=== PATIENT | female | born 1950 | race Caucasian/White ===

== ENCOUNTER → 2017-02-28 | Outpatient (CLI) | payer MEDICAID ==
[~2017-02-28] MED LIST: DIPH25TA31 PO; IBUP-2055 PO; OXYC-197 PO; SPIR25TA PO; THYR30TA2 PO
[2017-02-28 08:57] LABS: MEAN PLATELET VOLUME 9.8 FL (7.4-10.4); RED BLOOD COUNT 4.8 10^6/uL (4.35-5.85); RED CELL DISTRIBUTION WIDTH 13.8 % (10.0-14.5); WHITE BLOOD COUNT 5.3 10^3/uL (4.3-11.0)
[2017-02-28 09:18] LABS: ALANINE AMINOTRANSFERASE 12 U/L (0-55); ANION GAP 11 MMOL/L (5-14); ASPARTATE AMINO TRANSFERASE 14 U/L (5-34); BILIRUBIN,TOTAL 0.6 MG/DL (0.1-1.0); BLOOD UREA NITROGEN 10 MG/DL (7-18); BUN/CREATININE RATIO 13; CALCIUM 8.9 MG/DL (8.5-10.1); CARBON DIOXIDE 25 MMOL/L (21-32); CHLORIDE 102 MMOL/L (98-107); CHOLESTEROL 189 MG/DL (< 200); CREATININE SERUM 0.75 MG/DL (0.60-1.30); DIRECT LDL 118 MG/DL (1-129); GFR ESTIMATED > 60; GLUCOSE 99 MG/DL (70-105); POTASSIUM 3.9 MMOL/L (3.6-5.0); SODIUM 138 MMOL/L (135-145); TOTAL PROTEIN 6.7 GM/DL (6.4-8.2); TRIGLYCERIDES 92 MG/DL (<150); VLDL CHOLESTEROL 18 MG/DL (5-40)
[2017-02-28 09:37] LABS: THYROID STIMULATING HORMONE 2.28 UIU/ML (0.35-4.94)
[2017-03-03 07:46] LABS: MICROALBUMIN/CREATININE RATIO 9.3 mg/gCR (0.0-30.0)
[2017-03-04 13:25] LABS: ANTI THYROID MICROSOMAL ABY 3.24 Units (0.00-100.00)
== END ==
LOC: LAB 08:35
PROVIDERS: ATTEND Nurse Practitioner Family
DX: R53.83 Other fatigue (principal); E03.9 Hypothyroidism, unspecified; E78.5 Hyperlipidemia, unspecified; I10 Essential (primary) hypertension
CPT/HCPCS: 36415; 80053; 80061; 82043; 84436; 84443; 84480; 85027; 86376

== ENCOUNTER → 2018-02-20 | Outpatient (CLI) | payer MEDICAID ==
--- NOTE | 2018-02-20 09:34 | Diagnostic Imaging Report ---
PROCEDURE: CT abdomen and pelvis without contrast. TECHNIQUE: Multiple contiguous axial images were obtained through the abdomen and pelvis without the use of intravenous contrast. INDICATION: Left lower quadrant pain. Comparison is made with prior CT from 02/01/2016. The lung bases are clear. No discrete liver mass is identified. The gallbladder appears to be surgically absent. The pancreas and spleen are unremarkable. No adrenal mass is identified. Kidneys are without renal calculi or hydronephrosis. Aorta is partially calcified but non-aneurysmal. There has been surgical repair of previously noted midline ventral hernia containing bowel loops. No recurrent hernia of bowel loops is seen although there is minimal possibly herniated fat at the umbilicus. The small and large bowel loops are normal caliber. No obstruction is seen. There is sigmoid diverticulosis without evidence of acute diverticulitis. Bladder and uterus are unremarkable. IMPRESSION: 1. Uncomplicated diverticulosis. 2. Fat-containing umbilical hernia. Study is otherwise unremarkable. No acute feature is detected. Dictated by: Dictated on workstation # [id number]
== END ==
LOC: RAD 08:50
PROVIDERS: ATTEND Urology
DX: K57.30 Diverticulosis of large intestine without perforation or abscess without bleeding (principal); K42.9 Umbilical hernia without obstruction or gangrene
CPT/HCPCS: 74176

== ENCOUNTER → 2018-08-28 | Outpatient (CLI) | payer MEDICAID ==
[~2018-08-28] MED LIST changes: -OXYC-197 PO; +OXYC1TAB87 PO
[2018-08-28 10:12] LABS: BASOPHILS % (AUTO) 1 % (0-10); EOSINOPHILS # (AUTO) 0.4 10^3/uL (0.0-0.3); EOSINOPHILS % (AUTO) 7 % (0-10); HEMATOCRIT 41 % (35-52); HEMOGLOBIN 13.7 G/DL (11.5-16.0); LYMPHOCYTES # (AUTO) 1.3 X 10^3 (1.0-4.0); LYMPHOCYTES % (AUTO) 24 % (12-44); MEAN CORPUSCULAR HEMOGLOBIN 29 PG (25-34); MEAN CORPUSCULAR HGB CONC 34 G/DL (32-36); MEAN CORPUSCULAR VOLUME 88 FL (80-99); MEAN PLATELET VOLUME 10.6 FL (7.4-10.4); MONOCYTES # (AUTO) 0.4 X 10^3 (0.0-1.0); MONOCYTES % (AUTO) 7 % (0-12); NEUTROPHILS # (AUTO) 3.3 X 10^3 (1.8-7.8); NEUTROPHILS % (AUTO) 62 % (42-75); PLATELET COUNT 259 10^3/uL (130-400); RED BLOOD COUNT 4.66 10^6/uL (4.35-5.85); RED CELL DISTRIBUTION WIDTH 13.6 % (10.0-14.5); WHITE BLOOD COUNT 5.4 10^3/uL (4.3-11.0)
[2018-08-28 10:31] LABS: ALANINE AMINOTRANSFERASE 12 U/L (0-55); ALBUMIN 4.2 GM/DL (3.2-4.5); ALKALINE PHOSPHATASE 76 U/L (40-136); BILIRUBIN,TOTAL 0.6 MG/DL (0.1-1.0); BUN/CREATININE RATIO 16; CALCIUM 9.8 MG/DL (8.5-10.1); CARBON DIOXIDE 28 MMOL/L (21-32); CHLORIDE 99 MMOL/L (98-107); CHOLESTEROL 191 MG/DL (< 200); CREATININE SERUM 0.83 MG/DL (0.60-1.30); GFR ESTIMATED > 60; GLUCOSE 89 MG/DL (70-105); HDL CHOLESTEROL 64 MG/DL (40-60); SODIUM 138 MMOL/L (135-145); TRIGLYCERIDES 91 MG/DL (<150); VLDL CHOLESTEROL 18 MG/DL (5-40)
== END ==
LOC: LAB 09:59
PROVIDERS: ATTEND Nurse Practitioner Family
DX: R53.83 Other fatigue (principal); E78.2 Mixed hyperlipidemia; R60.0 Localized edema; M79.2 Neuralgia and neuritis, unspecified
CPT/HCPCS: 36415; 80053; 80061; 84443; 85025

== ENCOUNTER → 2018-09-02 | Outpatient (CLI) | payer MEDICAID | LOC: WOUNDCARE 13:16 | PROVIDERS: ATTEND Surgery | DX: I70.232 Atherosclerosis of native arteries of right leg with ulceration of calf (principal); L97.211 Non-pressure chronic ulcer of right calf limited to breakdown of skin; L97.221 Non-pressure chronic ulcer of left calf limited to breakdown of skin; I89.0 Lymphedema, not elsewhere classified; E66.01 Morbid (severe) obesity due to excess calories; Z68.41 Body mass index [BMI] 40.0-44.9, adult | CPT/HCPCS: 99214 ==

== ENCOUNTER → 2018-09-11 | Outpatient (CLI) | payer MEDICAID | LOC: WOUNDCARE 10:26 | PROVIDERS: ATTEND Surgery | DX: L97.211 Non-pressure chronic ulcer of right calf limited to breakdown of skin (principal); I89.0 Lymphedema, not elsewhere classified; E66.01 Morbid (severe) obesity due to excess calories | CPT/HCPCS: 29581 ==

== ENCOUNTER → 2018-09-14 | Outpatient (CLI) | payer MEDICAID | LOC: WOUNDCARE 08:22 | PROVIDERS: ATTEND Surgery | DX: I70.232 Atherosclerosis of native arteries of right leg with ulceration of calf (principal); L97.211 Non-pressure chronic ulcer of right calf limited to breakdown of skin; I89.0 Lymphedema, not elsewhere classified; E66.01 Morbid (severe) obesity due to excess calories; Z68.41 Body mass index [BMI] 40.0-44.9, adult | CPT/HCPCS: 99213 ==

== ENCOUNTER → 2018-10-02 | Outpatient (CLI) | payer MEDICAID | LOC: WOUNDCARE 10:20 | PROVIDERS: ATTEND Surgery | DX: L97.221 Non-pressure chronic ulcer of left calf limited to breakdown of skin (principal); I89.0 Lymphedema, not elsewhere classified; E66.01 Morbid (severe) obesity due to excess calories | CPT/HCPCS: 99213 ==

== ENCOUNTER → 2018-10-16 | Outpatient (CLI) | payer MEDICAID | LOC: WOUNDCARE 10:17 | PROVIDERS: ATTEND Surgery | DX: I70.232 Atherosclerosis of native arteries of right leg with ulceration of calf (principal); L97.221 Non-pressure chronic ulcer of left calf limited to breakdown of skin; I89.0 Lymphedema, not elsewhere classified; E66.01 Morbid (severe) obesity due to excess calories; Z68.41 Body mass index [BMI] 40.0-44.9, adult | CPT/HCPCS: 99212 ==

== ENCOUNTER → 2019-06-18 | Outpatient (CLI) | payer MEDICAID ==
--- NOTE | 2019-06-21 11:58 | Diagnostic Imaging Report ---
INDICATION: Routine screening. Comparison is made with prior mammograms from 07/27/2009 and 06/16/2007. 2-D and 3-D bilateral screening mammography was performed. The current study was also evaluated with a Computer Aided Detection (CAD) system. 3-D tomosynthesis was also performed and reviewed. FINDINGS: Scattered fibroglandular densities are identified bilaterally. There are benign calcifications bilaterally. No mass or malignant-appearing microcalcifications are seen. Axillae are unremarkable. IMPRESSION: No mammographic features suspicious for malignancy are identified. ACR BI-RADS Category 2: Benign findings. Result letter will be mailed to the patient. Note: At least 10% of breast cancer is not imaged by mammography. Dictated by: Dictated on workstation # [id number]
== END ==
LOC: RAD 10:27
PROVIDERS: ATTEND Internal Medicine
DX: Z12.31 Encounter for screening mammogram for malignant neoplasm of breast (principal); N30.00 Acute cystitis without hematuria
CPT/HCPCS: 77067

== ENCOUNTER 2020-08-25 05:30 | Outpatient (RCR) | payer MEDICAID ==
[~2020-08-25] VITALS: Ht 157.5 cm; Wt 103.0 kg
[~2020-08-25 05:30] MED LIST changes: +FENO145T26 PO; -IBUP-2055 PO; +IBUP-2473 PO; +METO50TA7 PO; +POTA10TA36 PO; +RT-ALBUINH IH; +VALS1TAB75 PO
== END 2020-08-25 09:32 | disposition home or self-care (01) ==
LOC: PREOP 05:30
PROVIDERS: ATTEND Surgery
DX: Z01.818 Encounter for other preprocedural examination (principal); R10.32 Left lower quadrant pain; Z20.822 Contact with and (suspected) exposure to COVID-19
CPT/HCPCS: 87635

== ENCOUNTER 2020-08-29 10:34 | Day surgery (SDC) | payer MEDICAID ==
[2020-08-29] VITALS (8 sets, daily range): BP systolic 107–183; BP diastolic 49–80
[~2020-08-29] VITALS: Ht 157.5 cm; Wt 103.0 kg
[2020-08-29] MEDS ORDERED: LACTATED RINGERS 1,000 ML IV ONE (10:40)
[2020-08-29] MEDS ORDERED: LACTATED RINGERS 1,000 ML IV STA (10:44)
[2020-08-29] MEDS ORDERED: PROPOFOL INJECTION 50 ML IV ONE ×2 (11:17→11:45)
[2020-08-29] MEDS ORDERED: MIDAZOLAM 2 MG/2 ML (VERSED) VIAL ONE (11:17)
--- NOTE | 2020-08-29 11:22 | Progress Note-Pre Operative ---
Pre-Operative Progress Note H&P Reviewed The H&P was reviewed, patient examined and no changes noted. Date Seen by Provider: Aug 29, 2020 Time Seen by Provider: : Date H&P Reviewed: Aug 29, 2020 Time H&P Reviewed: : Pre-Operative Diagnosis: llq abd pain, hx diverticulitis GONZALO ABEBE DO Aug 29, 2020 11:22
--- NOTE | 2020-08-29 12:01 | Progress Note-Post Operative ---
Post-Operative Progess Note Surgeon (s)/Investigator Operator (s) Surgeon GONZALO ABEBE DO Investigator Operator: na Pre-Operative Diagnosis llq abd pain, hx diverticulitis Post-Operative Diagnosis diverticulosis Procedure & Operative Findings Date of Procedure 08/29/20 Procedure Performed/Findings colonoscopy Anesthesia Type per [employer] administrative assistant Estimated Blood Loss Estimated blood loss (mL): na Specimens/Packing Specimens Removed na GONZALO ABEBE DO Aug 29, 2020 12:01
--- NOTE | 2020-08-29 12:02 | Discharge Inst-Simple/Standard ---
Discharge Inst-Standard Patient Instructions/Follow Up Plan of Care/Instructions/FU: Maris 2-3 weeks. Activity as Tolerated: Yes Discharge Diet: Regular Diet (high fiber) GONZALO ABEBE DO Aug 29, 2020 12:02
--- NOTE | 2020-08-29 12:54 | Anesthesia-General Post-Op ---
MAC Patient Condition Mental Status/LOC: Same as Preop Cardiovascular: Satisfactory Nausea/Vomiting: Absent Respiratory: Satisfactory Pain: Controlled Complications: Absent Post Op Complications Complications None Follow Up Care/Instructions Patient Instructions None needed. Anesthesiology Discharge Order Discharge Order Patient is doing well, no complaints, stable vital signs, no apparent adverse anesthesia problems. No complications reported per nursing. CAROLINE MOY CRNA Aug 29, 2020 12:54
--- NOTE | 2020-08-29 19:23 | OPERATIVE REPORT ---
DATE OF SERVICE: 08/29/2020 PREOPERATIVE DIAGNOSES: 1. Left lower quadrant abdominal pain. 2. History of diverticulitis. POSTOPERATIVE DIAGNOSES: Diverticulosis. PROCEDURE: Colonoscopy. SURGEON: Gonzalo Pollock DO ANESTHESIA: Per [employer] PASSENGER AGENT. ESTIMATED BLOOD LOSS: None. COMPLICATIONS: None. INDICATIONS: The patient is a 70-year-old female with a need for a colonoscopy. She has been having left lower quadrant abdominal pain and has history of diverticulitis. She understands risks and benefits of procedure and wished to proceed. Consent was signed in the chart. DESCRIPTION OF PROCEDURE: The patient was taken to endoscopy suite, placed in left lateral recumbent position. Timeout was performed. Digital rectal exam was performed. There were an ulceration on the upper portion of the midline buttocks. No palpable polyps, masses or ulcerations. Scope was inserted in the rectum, advanced all the way to cecum with minimal difficulty. Prep was adequate. Scope was then slowly retracted back. No polyps, masses or ulcerations within the cecum, ascending, transverse, descending and sigmoid colon. Through the sigmoid colon, diverticulosis was present. Scope was then continuously retracted back into the rectum, where it was also retroflexed noting no other pathology. Scope was returned to its normal position, slowly withdrawn until completely removed, noting no other pathology. The patient tolerated procedure well without any complications. She was taken to recovery room in stable condition. RECOMMENDATIONS: The patient recommended high fiber diet. The patient to continue to monitor her wound on her buttocks and if a chronic and nonhealing, we will consider biopsy. The patient will need repeat colonoscopy on a p.r.n. basis. Job ID: [id number] DocumentID: [id number] Dictated Date: 08/29/2020 12:08:31 Rotary Bar Operator Date: 08/29/2020 19:22:29 Dictated By: GONZALO POLLOCK DO
== END 2020-08-29 13:00 | disposition home or self-care (01) ==
LOC: ENDO 10:34
PROVIDERS: ATTEND Surgery
DX: K57.30 Diverticulosis of large intestine without perforation or abscess without bleeding (principal); I10 Essential (primary) hypertension; F41.9 Anxiety disorder, unspecified; F32.9 Major depressive disorder, single episode, unspecified; E66.01 Morbid (severe) obesity due to excess calories; Z68.41 Body mass index [BMI] 40.0-44.9, adult; Z79.899 Other long term (current) drug therapy

== ENCOUNTER → 2023-05-20 | Outpatient (CLI) | payer MEDICAID ==
[~2023-05-20] MED LIST changes: +ALBU8.5H6 IH; +POTA-177 PO; -POTA10TA36 PO; -RT-ALBUINH IH; +RT-ALBUTEROL SULF 2.5 MG/3 ML PRE-MIX VIAL INH ONE
== END ==
LOC: RT 09:41
PROVIDERS: ATTEND Nurse Practitioner Family
DX: J45.40 Moderate persistent asthma, uncomplicated (principal); J30.89 Other allergic rhinitis
CPT/HCPCS: 94060; 94726; 94729